=== PATIENT | female | born 1995 | race Caucasian/White ===

== ENCOUNTER 2016-08-12 08:53 | Outpatient (CLI) | payer BC ==
[2016-08-12 09:27] LABS: PLATELET COUNT (AUTO) 155 K/uL (130-430)
[2016-08-12 09:31] LABS: HEMATOCRIT 36.7 % (36-48); HEMOGLOBIN 12.6 g/dL (12.0-16.0); MEAN CORPUSCULAR HEMOGLOBIN 31 pg (27-31); MEAN CORPUSCULAR HGB CONC 34 % (32-36); MEAN CORPUSCULAR VOLUME 89 fL (79.0-98.0); RED BLOOD CELL COUNT(AUTO) 4.11 MIL/uL (4.2-6.2); RED CELL DISTRIBUTION WIDTH 12.4 % (9.0-15.0)
[2016-08-12 09:55] LABS: ALBUMIN 4.3 g/dL (3.4-4.8); CALCIUM 9.3 mg/dL (8.4-11.0); CREATININE 0.71 mg/dL (0.55-1.30); FREE T4 (FREE THYROXINE) 0.8 ng/dL (0.6-1.6); POTASSIUM 3.4 mmol/L (3.5-5.1); THYROID STIMULATING HORMONE 1.23 uIu/mL (0.34-4.82); TOTAL BILIRUBIN 0.6 mg/dL (0.0-1.0); TOTAL PROTEIN, SERUM 7.8 g/dL (6.4-8.3)
[2016-08-12 10:09] LABS: BASOPHILS % (MANUAL) 0 % (0-2); EOSINOPHILS % (MANUAL) 5 % (0-7); LYMPHOCYTES % (MANUAL) 50 % (20-46); MONOCYTES % (MANUAL) 5 % (0-11)
== END 2016-08-12 20:01 | disposition home or self-care (01) ==
LOC: SLB 08:53
DX: E55.9 Vitamin D deficiency, unspecified (principal); R53.81 Other malaise; R53.83 Other fatigue; R63.6 Underweight
CPT/HCPCS: 36415; 80053; 80061; 82306; 84439; 84443-TC; 85007; 85027